=== PATIENT | female | born 1970 | race Caucasian/White ===

== ENCOUNTER 2021-01-28 23:32 | Emergency (ER) | payer SELFPAY ==
[~2021-01-28] VITALS: Ht 160 cm; Wt 182.8 kg
[2021-01-29] MEDS ORDERED: CYCL10 PO (00:11)
[2021-01-29] MEDS ORDERED: OLME20 PO (00:11)
[2021-01-29] MEDS ORDERED: EUTHYROX125 MCG PO (00:12)
[2021-01-29 00:25] LABS: Source, Urine Clean Catch
[2021-01-29 00:28] LABS: Appearance, Urine Hazy (Clear); Bilirubin, Urine Neg (Neg); Blood, Urine 5+ (Neg); Color, Urine Yellow (P-Yellow); Glucose Qualitative, Urine Neg (Neg); Ketones, Urine Neg (Neg); Leukocyte Esterase, Urine 1+ (Neg); Nitrite, Urine Neg (Neg); Protein, Urine 2+ (Neg); Specific Gravity, Urine 1.025 (1.003-1.022); Urobilinogen, Urine NORM (Normal)
[2021-01-29 00:36] LABS: Bacteria Many /hpf; Red Blood Cells, Urine TNTC /hpf (0-2); Squamous Epithelial Cells Few /hpf (Few)
[2021-01-29] MEDS ORDERED: Macrobid 100 M100 MG PO (00:49)
== END 2021-01-29 01:16 | disposition home or self-care (01) ==
LOC: ER 23:32
PROVIDERS: Physician Assistant
DX: K64.4 Residual hemorrhoidal skin tags (principal); N39.0 Urinary tract infection, site not specified; I10 Essential (primary) hypertension; E03.9 Hypothyroidism, unspecified; Z88.0 Allergy status to penicillin; Z79.899 Other long term (current) drug therapy
CPT/HCPCS: 81001; 87086; 99282; A9270

== ENCOUNTER 2021-02-28 04:26 | Emergency (ER) | payer BC ==
[~2021-02-28] VITALS: Ht 160 cm; Wt 175.1 kg
[~2021-02-28 04:26] MED LIST: CYCL10 PO; EUTHYROX125 MCG PO; Macrobid 100 M100 MG PO; OLME20 PO
[2021-02-28 05:01] LABS: BASOPHILS ABSOLUTE AUTO 0.04 K/mm3 (0.00-0.23); BASOPHILS PERCENT AUTO 1 % (0-2); EOSINOPHILS ABSOLUTE AUTO 0.04 K/mm3 (0.00-0.68); EOSINOPHILS PERCENT AUTO 1 % (0-6); Hematocrit 44.7 % (33.0-51.0); Hemoglobin 15.4 g/dL (11.5-16.0); IMMATURE GRAN ABSOLUTE AUTO 0.02 K/mm3 (0.00-0.10); IMMATURE GRAN PERCENT AUTO 0 % (0-1); LYMPHOCYTES ABSOLUTE AUTO 1.37 K/mm3 (0.84-5.20); LYMPHOCYTES PERCENT AUTO 18 % (21-46); MONOCYTES ABSOLUTE AUTO 0.34 K/mm3 (0.16-1.47); MONOCYTES PERCENT AUTO 5 % (4-13); Mean Corpuscular HGB Conc 34.5 g/dL (31.5-36.5); Mean Corpuscular Volume 93 fL (80-100); Mean Platelet Volume 9.2 fL (9.1-12.4); NEUTROPHILS ABSOLUTE AUTO 5.76 K/mm3 (1.96-9.15); NEUTROPHILS PERCENT AUTO 76 % (41-73); Platelet Count 367 K/mm3 (150-400); RDW Coefficient Variation 13.2 % (11.7-14.2); Red Blood Cell Count 4.82 M/mm3 (3.80-5.20); White Blood Cell Count 7.57 K/mm3 (4.00-11.30)
[2021-02-28 05:35] LABS: Alanine Aminotransfer (ALT/SGP 63 U/L (12-78); Albumin, Blood 3.4 g/dL (3.4-5.0); Albumin/Globulin Ratio 0.8 (0.8-1.8); Alk Phos 70 U/L (50-136); Anion Gap 8 mmol/L (6-16); Aspartate Aminotrans (AST/SGOT 45 U/L (12-37); Bilirubin, Total 1.6 mg/dL (0.1-1.0); Blood Urea Nitrogen 13 mg/dL (8-24); Bun/Creatinine Ratio 14.4 (12.0-20.0); CO2, Blood 22 mmol/L (21-32); Calcium, Blood 9.2 mg/dL (8.5-10.1); Chloride, Blood 110 mmol/L (98-108); Glomerular Filtration Rate >60 (60-); Glucose, Blood 130 mg/dL (70-99); Potassium, Blood 3.8 mmol/L (3.5-5.5); Sodium, Blood 140 mmol/L (136-145); Total Protein, Blood 7.4 g/dL (6.4-8.2)
[2021-02-28 05:43] LABS: Source, Urine Clean Catch
[2021-02-28 05:51] LABS: Bilirubin, Urine Neg (Neg); Blood, Urine 5+ (Neg); Glucose Qualitative, Urine Neg (Neg); Ketones, Urine 2+ (Neg); Leukocyte Esterase, Urine Neg (Neg); Nitrite, Urine Neg (Neg); Protein, Urine 1+ (Neg); Urobilinogen, Urine NORM (Normal)
[2021-02-28 06:03] LABS: Appearance, Urine Clear (Clear); Color, Urine Yellow (P-Yellow)
[2021-02-28 06:04] LABS: Amorphous Light (0-Heavy); Bacteria Few /hpf; Mucus Light (0-Heavy); Squamous Epithelial Cells Few /hpf (Few); White Blood Cells, Urine Rare /hpf (0-5)
== END 2021-02-28 07:08 | disposition home or self-care (01) ==
LOC: ER 04:26
PROVIDERS: Student in an Organized Health Care Education/Training Program
DX: N20.0 Calculus of kidney (principal); E03.9 Hypothyroidism, unspecified; I10 Essential (primary) hypertension; Z88.1 Allergy status to other antibiotic agents; Z79.899 Other long term (current) drug therapy
CPT/HCPCS: 36415; 74176; 80053; 81001; 83690; 85025; 99284-25; A9270

== ENCOUNTER 2021-05-23 02:23 | Inpatient (IN) | payer OTHER ==
[~2021-05-23] VITALS: Ht 160 cm; Wt 177.4 kg
[2021-05-23 03:04] LABS: Source, Urine Voided
[2021-05-23 03:06] LABS: BASOPHILS ABSOLUTE AUTO 0.07 K/mm3 (0.00-0.23); BASOPHILS PERCENT AUTO 0 % (0-2); EOSINOPHILS PERCENT AUTO 0 % (0-6); Hematocrit 46.7 % (33.0-51.0); Hemoglobin 15.6 g/dL (11.5-16.0); IMMATURE GRAN PERCENT AUTO 1 % (0-1); LYMPHOCYTES PERCENT AUTO 8 % (21-46); MONOCYTES ABSOLUTE AUTO 0.99 K/mm3 (0.16-1.47); MONOCYTES PERCENT AUTO 6 % (4-13); Mean Corpuscular HGB Conc 33.4 g/dL (31.5-36.5); Mean Corpuscular Volume 93 fL (80-100); Mean Platelet Volume 8.7 fL (9.1-12.4); NEUTROPHILS ABSOLUTE AUTO 15.42 K/mm3 (1.96-9.15); NEUTROPHILS PERCENT AUTO 85 % (41-73); Platelet Count 401 K/mm3 (150-400); RDW Coefficient Variation 12.5 % (11.7-14.2); RDW Standard Deviation 42.6 fL (35.1-46.3); Red Blood Cell Count 5.04 M/mm3 (3.80-5.20); White Blood Cell Count 18.08 K/mm3 (4.00-11.30)
[2021-05-23 03:06] LABS: Bilirubin, Urine Neg (Neg); Blood, Urine 5+ (Neg); Glucose Qualitative, Urine Neg (Neg); Ketones, Urine Neg (Neg); Leukocyte Esterase, Urine 3+ (Neg); Nitrite, Urine Pos (Neg); Protein, Urine 3+ (Neg); Urobilinogen, Urine NORM (Normal)
[2021-05-23 03:10] LABS: Appearance, Urine Cloudy (Clear); Color, Urine Yellow (P-Yellow)
[2021-05-23 03:12] LABS: Bacteria Many /hpf; Squamous Epithelial Cells Few /hpf (Few); White Blood Cells, Urine TNTC /hpf (0-5)
[2021-05-23 03:23] LABS: Alanine Aminotransfer (ALT/SGP 34 U/L (12-78); Albumin, Blood 3.3 g/dL (3.4-5.0); Albumin/Globulin Ratio 0.7 (0.8-1.8); Alk Phos 80 U/L (50-136); Anion Gap 9 mmol/L (6-16); Aspartate Aminotrans (AST/SGOT 26 U/L (12-37); Bilirubin, Total 1.9 mg/dL (0.1-1.0); Blood Urea Nitrogen 16 mg/dL (8-24); Bun/Creatinine Ratio 17.4 (12.0-20.0); CO2, Blood 20 mmol/L (21-32); Calcium, Blood 9.3 mg/dL (8.5-10.1); Chloride, Blood 109 mmol/L (98-108); Creatinine, Blood 0.92 mg/dL (0.40-1.00); Globulin, Blood 4.5 g/dL (2.2-4.0); Glomerular Filtration Rate >60 (60-); Glucose, Blood 147 mg/dL (70-99); Potassium, Blood 4.1 mmol/L (3.5-5.5); Sodium, Blood 138 mmol/L (136-145); Total Protein, Blood 7.8 g/dL (6.4-8.2)
[2021-05-23 08:32] LABS: Influenza A, PCR NEGATIVE (NEGATIVE); Influenza B, PCR NEGATIVE (NEGATIVE); Resp Syncytial Virus, PCR NEGATIVE (NEGATIVE); SARS-Cov-2 (COVID-19) PCR, MMC NEGATIVE (NEGATIVE)
--- NOTE | 2021-05-23 18:34 | NUR ---
PATIENT CURRENTLY SITTING UP IN BED WITH NO SIGNS OR SYMPTOMS ACUTE DISTRESS NOTED. CALL LIGHT AND WATER ARE IN EASY REACH. PATIENT ARRIVED TO THE FLOOR EARLIER FROM THE ED. PATIENT IS WAITING FOR BED TO COME OPEN AT [facility] IN [place] FOR UROLOGY. STRAINING ALL URINE PER ORDERS. NO STONE NOTED OF YET. PATIENT MEDICATED FOR PAIN PER ORDERS SEE MAGALIR. AAOX4. UP AD FAVIOLA. STEADY ON FEET. IVF CONTINUE. PATIENT DOES BECOME SOB WITH EXERTION. WILL CONTINUE TO MONITOR.
[2021-05-24 04:08] LABS: BASOPHILS ABSOLUTE AUTO 0.03 K/mm3 (0.00-0.23); BASOPHILS PERCENT AUTO 0 % (0-2); EOSINOPHILS ABSOLUTE AUTO 0.02 K/mm3 (0.00-0.68); EOSINOPHILS PERCENT AUTO 0 % (0-6); Hematocrit 39.1 % (33.0-51.0); Hemoglobin 12.9 g/dL (11.5-16.0); IMMATURE GRAN ABSOLUTE AUTO 0.04 K/mm3 (0.00-0.10); IMMATURE GRAN PERCENT AUTO 0 % (0-1); LYMPHOCYTES ABSOLUTE AUTO 1.18 K/mm3 (0.84-5.20); LYMPHOCYTES PERCENT AUTO 11 % (21-46); MONOCYTES ABSOLUTE AUTO 0.68 K/mm3 (0.16-1.47); MONOCYTES PERCENT AUTO 7 % (4-13); Mean Corpuscular HGB 31.3 pg (26.0-34.0); Mean Corpuscular Volume 95 fL (80-100); Mean Platelet Volume 9.2 fL (9.1-12.4); NEUTROPHILS ABSOLUTE AUTO 8.55 K/mm3 (1.96-9.15); NEUTROPHILS PERCENT AUTO 81 % (41-73); Platelet Count 232 K/mm3 (150-400); RDW Coefficient Variation 12.6 % (11.7-14.2); RDW Standard Deviation 43.9 fL (35.1-46.3); Red Blood Cell Count 4.12 M/mm3 (3.80-5.20)
[2021-05-24 04:42] LABS: Bun/Creatinine Ratio 17.1 (12.0-20.0); Calcium, Blood 8.4 mg/dL (8.5-10.1); Creatinine, Blood 1.17 mg/dL (0.40-1.00); Potassium, Blood 4.3 mmol/L (3.5-5.5)
--- NOTE | 2021-05-24 11:59 | NUR ---
Pt. was alert, sitting up in bed and finishing lunch. Pt. welcomed my visit. Pt. unsettled about current pain from a kidney stone that she described as "stuck." Listened empathetically. Pt. verbalized a nominal swapnil, and then became cathartic when she described the pain and pressure of family who have a different swapnil practice. Offered emotional support, and established rapport with pt. With permission prayed for pt. Pt. displayed evidence of agreement and verbalized gratitude for both prayer and my visit.
--- NOTE | 2021-05-24 17:52 | NUR ---
PATIENT CURRENTLY SITTING UP IN BED EATING HER MEAL. NO SIGNS OR SYMPTOMS ACUTE DISTRESS NOTED. NO COMPLAINTS VOICED AT THIS TIME. AAOX4, ABLE TO MAKE NEEDS AND WANTS KNOWN. PATIENT UP AD FAVIOLA, ALL URINE HAS BEEN STRAINED TODAY. PATIENT DOES NOT COMPLAIN OF ANY UTI SYMPTOMS OR PAIN UPON URINATION. PATIENT MEDICATED TODAY FOR A HEACACHE AND FEVER. SEE EMAR. CONTINUE TO WAIT FOR A BED IN [place], NONE AVAILABLE AT THIS TIME. IVF CONTINUE. WILL MONITOR.
--- NOTE | 2021-05-24 18:53 | NUR ---
RECEIVED REPORT AND ASSUMED CARE OF PT. SHE IS SITTING UP IN BED, DENIES ANY COMPLAINTS OR CONCERNS AT THIS TIME. WCTM.
--- NOTE | 2021-05-24 22:06 | NUR ---
ASSUMED CARE OF PT. PT SLEEPING IN BED, RESP E/U, NO DISTRESS NOTED. WILL MONITOR AND TX PER ORDERS.
[2021-05-25 05:32] LABS: Bun/Creatinine Ratio 14.1 (12.0-20.0); Calcium, Blood 8.4 mg/dL (8.5-10.1); Creatinine, Blood 0.99 mg/dL (0.40-1.00); Potassium, Blood 3.9 mmol/L (3.5-5.5)
--- NOTE | 2021-05-25 06:34 | NUR ---
T-MAX 100.5, OTHER VSS. PT DENIED PAIN W/VOID, URINE NOW DARK YELLOW (WAS PREV SHANNA). URINE STRAINED, SOME SEDIMENT W/NO OBVIOUS STONES NOTED. PT DENIED N/V. PT UP INDEP IN ROOM. IVF AND ABX CONT PER ORDERS. CONT TO AWAIT UROLOGY TRANSFER
--- NOTE | 2021-05-25 11:42 | NUR ---
TO RADIOLOGY VIA WHEELCHAIR
--- NOTE | 2021-05-25 11:58 | NUR ---
RETURN TO ROOM FROM RADIOLOGY. PT DENIES PAIN
--- NOTE | 2021-05-25 16:18 | NUR ---
1615 DISCHARGED TO BE TRANSPORTED TO [facility] VIA AMBULANCE. PT IN AGREEMENT WITH PLANS FOR TRANSFER. PT DENIES PAIN.
== END 2021-05-25 16:15 | disposition short-term general hospital (02) | DRG 872 ==
LOC: ER 02:23 → MEDS 11:23 → SURS 11:23
PROVIDERS: Emergency Medicine; Internal Medicine; Nurse Practitioner Acute Care; Student in an Organized Health Care Education/Training Program; ADMIT Family Medicine
DX: A41.51 Sepsis due to Escherichia coli [E. coli] (principal); N13.6 Pyonephrosis; Z68.44 Body mass index [BMI] 60.0-69.9, adult; R65.20 Severe sepsis without septic shock; Z20.822 Contact with and (suspected) exposure to COVID-19; E66.01 Morbid (severe) obesity due to excess calories; I10 Essential (primary) hypertension; E03.9 Hypothyroidism, unspecified; Z87.19 Personal history of other diseases of the digestive system; Z88.0 Allergy status to penicillin; Z79.899 Other long term (current) drug therapy
CPT/HCPCS: 0241U; 36415; 74176; 76770; 80048; 80053; 81001; 83605; 83690; 85025; 87040; 87077; 87086; 87186; 93005; 93010; 96361; 96365; 96375; 99285-25; A9270; J1170; J1885; J1956; J2405; J2550; J7030; J7120

== ENCOUNTER → 2021-09-29 | Outpatient (CLI) | payer OTHER ==
[~2021-09-29] MED LIST changes: +HYDR1TAB94 PO; +LOSA50 PO; +ONDA4 PO; +TRAM50
[2021-09-29 20:18] LABS: Microalb/Creat Ratio UR, Rand 6.429 mg/g (0.000-30.000)
== END | disposition home or self-care (01) ==
LOC: LAB SHORT 17:51
PROVIDERS: Family Medicine
DX: N20.0 Calculus of kidney (principal)
CPT/HCPCS: 82043; 82570; 87077; 87086; 87186

== ENCOUNTER → 2022-03-24 | Outpatient (CLI) | payer OTHER ==
[~2022-03-24] MED LIST changes: +ONDA4ODT MM; +Percocet 5-3251 EACH PO
[2022-03-24 10:52] LABS: Source, Urine Voided
[2022-03-24 10:53] LABS: BASOPHILS ABSOLUTE AUTO 0.05 K/mm3 (0.00-0.23); BASOPHILS PERCENT AUTO 1 % (0-2); EOSINOPHILS ABSOLUTE AUTO 0.19 K/mm3 (0.00-0.68); EOSINOPHILS PERCENT AUTO 3 % (0-6); Hemoglobin 15.2 g/dL (11.5-16.0); IMMATURE GRAN ABSOLUTE AUTO 0.01 K/mm3 (0.00-0.10); IMMATURE GRAN PERCENT AUTO 0 % (0-1); LYMPHOCYTES ABSOLUTE AUTO 1.94 K/mm3 (0.84-5.20); LYMPHOCYTES PERCENT AUTO 34 % (21-46); MONOCYTES ABSOLUTE AUTO 0.32 K/mm3 (0.16-1.47); MONOCYTES PERCENT AUTO 6 % (4-13); Mean Corpuscular HGB 31.7 pg (26.0-34.0); Mean Corpuscular HGB Conc 33.8 g/dL (31.5-36.5); Mean Corpuscular Volume 94 fL (80-100); Mean Platelet Volume 8.8 fL (9.1-12.4); NEUTROPHILS ABSOLUTE AUTO 3.28 K/mm3 (1.96-9.15); NEUTROPHILS PERCENT AUTO 57 % (41-73); Platelet Count 324 K/mm3 (150-400); RDW Coefficient Variation 12.9 % (11.7-14.2); RDW Standard Deviation 44.1 fL (35.1-46.3); Red Blood Cell Count 4.79 M/mm3 (3.80-5.20); White Blood Cell Count 5.79 K/mm3 (4.00-11.30)
[2022-03-24 10:58] LABS: Bacteria Not Seen /hpf; Red Blood Cells, Urine 0-2 /hpf (0-2); Squamous Epithelial Cells Few /hpf (Few); White Blood Cells, Urine 0-2 /hpf (0-5)
[2022-03-24 11:01] LABS: Albumin, Blood 3.4 g/dL (3.4-5.0); Albumin/Globulin Ratio 0.9 (0.8-1.8); Bun/Creatinine Ratio 21.2 (12.0-20.0); Calcium, Blood 8.7 mg/dL (8.5-10.1); Creatinine, Blood 0.85 mg/dL (0.40-1.00); Potassium, Blood 4.1 mmol/L (3.5-5.5); Total Protein, Blood 7.4 g/dL (6.4-8.2)
== END | disposition home or self-care (01) ==
LOC: LAB 10:48 → LAB SHORT 10:48
PROVIDERS: General Practice
DX: N20.0 Calculus of kidney (principal); N39.0 Urinary tract infection, site not specified
CPT/HCPCS: 80053; 81015; 85025; 87077; 87086; 87186

== ENCOUNTER → 2022-11-30 | Outpatient (CLI) | payer OTHER ==
[~2022-11-30] MED LIST changes: +Bactrim Ds Tab1 EACH PO; +TRAM50 PO
[2022-11-30 16:05] LABS: BASOPHILS ABSOLUTE AUTO 0.05 K/mm3 (0.00-0.23); BASOPHILS PERCENT AUTO 1 % (0-2); EOSINOPHILS ABSOLUTE AUTO 0.15 K/mm3 (0.00-0.68); EOSINOPHILS PERCENT AUTO 2 % (0-6); Hematocrit 44.8 % (33.0-51.0); Hemoglobin 15.5 g/dL (11.5-16.0); IMMATURE GRAN ABSOLUTE AUTO 0.02 K/mm3 (0.00-0.10); IMMATURE GRAN PERCENT AUTO 0 % (0-1); LYMPHOCYTES PERCENT AUTO 29 % (21-46); MONOCYTES ABSOLUTE AUTO 0.57 K/mm3 (0.16-1.47); MONOCYTES PERCENT AUTO 7 % (4-13); Mean Corpuscular HGB 32.2 pg (26.0-34.0); Mean Corpuscular HGB Conc 34.6 g/dL (31.5-36.5); Mean Corpuscular Volume 93 fL (80-100); Mean Platelet Volume 9.7 fL (9.1-12.4); NEUTROPHILS ABSOLUTE AUTO 5.39 K/mm3 (1.96-9.15); NEUTROPHILS PERCENT AUTO 62 % (41-73); Platelet Count 323 K/mm3 (150-400); RDW Coefficient Variation 12.5 % (11.7-14.2); RDW Standard Deviation 42.6 fL (35.1-46.3); Red Blood Cell Count 4.82 M/mm3 (3.80-5.20); White Blood Cell Count 8.68 K/mm3 (4.00-11.30)
[2022-11-30 16:22] LABS: Percent Saturation 34.5 % (15.0-50.0)
== END ==
LOC: LAB 11:30 → LAB SHORT 11:30
PROVIDERS: Family Medicine
DX: G25.81 Restless legs syndrome (principal)
CPT/HCPCS: 82607; 82728; 82746; 83540; 83550; 83735; 85025

== ENCOUNTER → 2022-12-26 | Outpatient (CLI) | payer OTHER ==
[~2022-12-26] MED LIST changes: +AZIT250 PO; +CELE100 PO; +HYDCHL25 PO; +Norco 5-325 Ta1 EACH PO; +Pepcid20 MG PO
== END | disposition home or self-care (01) ==
LOC: LAB 14:07 → LAB SHORT 14:07
DX: R07.81 Pleurodynia (principal)
CPT/HCPCS: 85379

== ENCOUNTER → 2022-12-26 | Outpatient (CLI) | payer OTHER ==
[2022-12-26 13:42] LABS: BASOPHILS ABSOLUTE AUTO 0.06 K/mm3 (0.00-0.23); BASOPHILS PERCENT AUTO 1 % (0-2); EOSINOPHILS ABSOLUTE AUTO 0.29 K/mm3 (0.00-0.68); EOSINOPHILS PERCENT AUTO 4 % (0-6); Hematocrit 44.9 % (33.0-51.0); Hemoglobin 15.8 g/dL (11.5-16.0); IMMATURE GRAN ABSOLUTE AUTO 0.01 K/mm3 (0.00-0.10); IMMATURE GRAN PERCENT AUTO 0 % (0-1); LYMPHOCYTES PERCENT AUTO 42 % (21-46); MONOCYTES ABSOLUTE AUTO 0.48 K/mm3 (0.16-1.47); MONOCYTES PERCENT AUTO 7 % (4-13); Mean Corpuscular HGB 32.4 pg (26.0-34.0); Mean Corpuscular HGB Conc 35.2 g/dL (31.5-36.5); Mean Corpuscular Volume 92 fL (80-100); Mean Platelet Volume 9.8 fL (9.1-12.4); NEUTROPHILS ABSOLUTE AUTO 3.38 K/mm3 (1.96-9.15); NEUTROPHILS PERCENT AUTO 46 % (41-73); Platelet Count 359 K/mm3 (150-400); RDW Coefficient Variation 12.9 % (11.7-14.2); RDW Standard Deviation 43.4 fL (35.1-46.3); Red Blood Cell Count 4.88 M/mm3 (3.80-5.20); White Blood Cell Count 7.32 K/mm3 (4.00-11.30)
[2022-12-26 13:58] LABS: Bun/Creatinine Ratio 24.3 (12.0-20.0); Calcium, Blood 9.3 mg/dL (8.5-10.1); Creatinine, Blood 0.82 mg/dL (0.40-1.00); Potassium, Blood 3.5 mmol/L (3.5-5.5)
== END | disposition home or self-care (01) ==
LOC: LAB SHORT 12:15 → LAB 12:15
PROVIDERS: Family Medicine
DX: R07.81 Pleurodynia (principal)
CPT/HCPCS: 80048; 84484; 85025

== ENCOUNTER 2022-12-31 06:55 | Emergency (ER) | payer OTHER ==
[~2022-12-31] VITALS: Ht 160 cm; Wt 186.0 kg
[~2022-12-31 06:55] MED LIST changes: -AZIT250 PO; -CELE100 PO; -HYDCHL25 PO; -Norco 5-325 Ta1 EACH PO; -Pepcid20 MG PO
[2022-12-31] MEDS ORDERED: AZIT250 PO (07:19)
[2022-12-31] MEDS ORDERED: HYDCHL25 PO (07:20)
[2022-12-31] MEDS ORDERED: CELE100 PO (07:20)
[2022-12-31 07:41] LABS: BASOPHILS ABSOLUTE AUTO 0.04 K/mm3 (0.00-0.23); BASOPHILS PERCENT AUTO 1 % (0-2); EOSINOPHILS PERCENT AUTO 3 % (0-6); Hematocrit 41.9 % (33.0-51.0); Hemoglobin 14.3 g/dL (11.5-16.0); IMMATURE GRAN ABSOLUTE AUTO 0.02 K/mm3 (0.00-0.10); IMMATURE GRAN PERCENT AUTO 0 % (0-1); LYMPHOCYTES ABSOLUTE AUTO 1.81 K/mm3 (0.84-5.20); LYMPHOCYTES PERCENT AUTO 28 % (21-46); MONOCYTES PERCENT AUTO 6 % (4-13); Mean Corpuscular HGB 31.8 pg (26.0-34.0); Mean Corpuscular HGB Conc 34.1 g/dL (31.5-36.5); Mean Corpuscular Volume 93 fL (80-100); Mean Platelet Volume 9.1 fL (9.1-12.4); NEUTROPHILS ABSOLUTE AUTO 4.01 K/mm3 (1.96-9.15); NEUTROPHILS PERCENT AUTO 62 % (41-73); Platelet Count 282 K/mm3 (150-400); RDW Coefficient Variation 12.7 % (11.7-14.2); RDW Standard Deviation 43.5 fL (35.1-46.3); White Blood Cell Count 6.48 K/mm3 (4.00-11.30)
[2022-12-31 08:06] LABS: Albumin/Globulin Ratio 0.8 (0.8-1.8); Bilirubin, Total 0.9 mg/dL (0.1-1.0); Bun/Creatinine Ratio 21.8 (12.0-20.0); Calcium, Blood 8.7 mg/dL (8.5-10.1); Creatinine, Blood 0.87 mg/dL (0.40-1.00); Globulin, Blood 3.6 g/dL (2.2-4.0); Potassium, Blood 3.8 mmol/L (3.5-5.5); Total Protein, Blood 6.6 g/dL (6.4-8.2)
[2022-12-31 08:28] LABS: Source, Urine Voided
[2022-12-31 08:36] LABS: Appearance, Urine Hazy (Clear); Bilirubin, Urine Neg (Neg); Blood, Urine Neg (Neg); Color, Urine Yellow (P-Yellow); Glucose Qualitative, Urine Neg (Neg); Ketones, Urine Neg (Neg); Leukocyte Esterase, Urine 1+ (Neg); Nitrite, Urine Neg (Neg); Protein, Urine 1+ (Neg); Specific Gravity, Urine 1.025 (1.003-1.022); Urobilinogen, Urine NORM (Normal)
[2022-12-31 08:48] LABS: Bacteria Many /hpf; Squamous Epithelial Cells Many /hpf (Few)
[2022-12-31 08:51] LABS: Hyaline Casts 0-2 /lpf (0-2); Mucus Mod (0-Heavy)
[2022-12-31] MEDS ORDERED: Norco 5-325 Ta1 EACH PO (11:25)
[2022-12-31] MEDS ORDERED: ONDA4ODT MM (11:25)
[2022-12-31] MEDS ORDERED: Pepcid20 MG PO (11:25)
[2022-12-31 11:50] VITALS: BP 122/70
== END 2022-12-31 12:01 | disposition home or self-care (01) ==
LOC: ER 06:55
PROVIDERS: Emergency Medicine
DX: K80.50 Calculus of bile duct without cholangitis or cholecystitis without obstruction (principal); E03.9 Hypothyroidism, unspecified; I10 Essential (primary) hypertension; Z88.0 Allergy status to penicillin; Z91.018 Allergy to other foods; Z79.899 Other long term (current) drug therapy
CPT/HCPCS: 74177; 80053; 81001; 81025; 83690; 85025; 87077; 87086; 87147; 87186; 93005; 93010; 96374; 99285-25; J2270; Q9967

== ENCOUNTER → 2023-04-19 | Outpatient (CLI) | payer OTHER ==
[~2023-04-19] MED LIST changes: +AZIT250 PO; +CELE100 PO; +HYDCHL25 PO; +Norco 5-325 Ta1 EACH PO; +Pepcid20 MG PO
[2023-04-19 22:13] LABS: C DIFFICILE DNA NEGATIVE (Negative)
== END ==
LOC: LAB SHORT 14:25
PROVIDERS: Nurse Practitioner Family
DX: R19.7 Diarrhea, unspecified (principal)
CPT/HCPCS: 87493

== ENCOUNTER 2023-05-19 03:31 | Emergency (ER) | payer OTHER ==
[~2023-05-19] VITALS: Ht 160 cm; Wt 195.0 kg
[2023-05-19 03:35] VITALS: BP 158/97
[2023-05-19] MEDS ORDERED: CHOLESTYRAMI239.4 G1 PO (03:45)
[2023-05-19] MEDS ORDERED: OLME5TAB PO (03:46)
[2023-05-19 03:59] LABS: BASOPHILS ABSOLUTE AUTO 0.04 K/mm3 (0.00-0.23); BASOPHILS PERCENT AUTO 1 % (0-2); EOSINOPHILS ABSOLUTE AUTO 0.23 K/mm3 (0.00-0.68); EOSINOPHILS PERCENT AUTO 4 % (0-6); Hematocrit 41.8 % (33.0-51.0); Hemoglobin 14.2 g/dL (11.5-16.0); IMMATURE GRAN ABSOLUTE AUTO 0.01 K/mm3 (0.00-0.10); IMMATURE GRAN PERCENT AUTO 0 % (0-1); LYMPHOCYTES ABSOLUTE AUTO 2.37 K/mm3 (0.84-5.20); LYMPHOCYTES PERCENT AUTO 40 % (21-46); MONOCYTES ABSOLUTE AUTO 0.46 K/mm3 (0.16-1.47); MONOCYTES PERCENT AUTO 8 % (4-13); Mean Corpuscular HGB 31.8 pg (26.0-34.0); Mean Corpuscular Volume 94 fL (80-100); Mean Platelet Volume 9.2 fL (9.1-12.4); NEUTROPHILS ABSOLUTE AUTO 2.89 K/mm3 (1.96-9.15); NEUTROPHILS PERCENT AUTO 48 % (41-73); Platelet Count 296 K/mm3 (150-400); RDW Coefficient Variation 13.1 % (11.7-14.2); Red Blood Cell Count 4.47 M/mm3 (3.80-5.20)
[2023-05-19 04:17] LABS: Albumin/Globulin Ratio 0.8 (0.8-1.8); Bilirubin, Total 1.2 mg/dL (0.1-1.0); Bun/Creatinine Ratio 23.8 (12.0-20.0); Calcium, Blood 8.6 mg/dL (8.5-10.1); Creatinine, Blood 0.88 mg/dL (0.40-1.00); Globulin, Blood 3.7 g/dL (2.2-4.0); Potassium, Blood 4.1 mmol/L (3.5-5.5); Total Protein, Blood 6.7 g/dL (6.4-8.2)
[2023-05-19 04:37] LABS: Source, Urine Clean Catch
[2023-05-19 04:42] LABS: Bilirubin, Urine Neg (Neg); Blood, Urine Neg (Neg); Glucose Qualitative, Urine Neg (Neg); Ketones, Urine Neg (Neg); Leukocyte Esterase, Urine Neg (Neg); Nitrite, Urine Neg (Neg); Protein, Urine Neg (Neg); Urobilinogen, Urine NORM (Normal)
[2023-05-19 04:47] LABS: Appearance, Urine Clear (Clear); Color, Urine Yellow (P-Yellow)
[2023-05-19] MEDS ORDERED: Robaxin750 MG PO (05:28)
[2023-05-19] MEDS ORDERED: ONDA4ODT MM (05:28)
== END 2023-05-19 06:24 | disposition home or self-care (01) ==
LOC: ER 03:31
PROVIDERS: Emergency Medicine
DX: K52.9 Noninfective gastroenteritis and colitis, unspecified (principal); E03.9 Hypothyroidism, unspecified; I10 Essential (primary) hypertension
CPT/HCPCS: 80053; 81003; 83690; 85025; 93005; 93010; 96361; 96374; 96375; 96376; 99284-25; A9270; J1170; J1885; J2405; J7120

== ENCOUNTER 2023-05-27 07:38 | Emergency (ER) | payer OTHER ==
[~2023-05-27] VITALS: Ht 160 cm; Wt 197.3 kg
[~2023-05-27 07:38] MED LIST changes: +CHOLESTYRAMI239.4 G1 PO; +OLME5TAB PO; +Robaxin750 MG PO
[2023-05-27] MEDS ORDERED: Dexamethasone Sodium Phosphate 4 MG/ML 1ML Vial IV ONE (09:00)
[2023-05-27] MEDS ORDERED: Ketorolac Tromethamine 15mg Vial IV ONE (09:00)
[2023-05-27] MEDS ORDERED: Ondansetron HCl 2 MG / ML 2ML Vial IV ONE (09:00)
[2023-05-27] MEDS ORDERED: HYDROmorphone HCl/Pf 1MG SYR IV ONE (09:00)
[2023-05-27] MEDS ORDERED: METPRE4DP PO (10:15)
[2023-05-27] MEDS ORDERED: OXYC5 PO (10:15)
[2023-05-27 10:56] VITALS: BP 140/92
== END 2023-05-27 10:56 | disposition home or self-care (01) ==
LOC: ER 07:38
DX: M54.31 Sciatica, right side (principal); I10 Essential (primary) hypertension; E03.9 Hypothyroidism, unspecified; Z79.899 Other long term (current) drug therapy; Z88.0 Allergy status to penicillin; Z91.018 Allergy to other foods; X50.9XXA Other and unspecified overexertion or strenuous movements or postures, initial encounter; Y92.810 Car as the place of occurrence of the external cause; Y93.89 Activity, other specified
CPT/HCPCS: 96374; 96375; 99283-25; J1100; J1170; J1885; J2405

== ENCOUNTER → 2024-04-13 | Outpatient (CLI) | payer OTHER ==
[~2024-04-13] MED LIST changes: +DEPRESSION MED; +ESCI10 PO; +FUROSEMIDE20 MG PO; +KLOR-CON 1010 ME9 PO; +METPRE4DP PO; +Methocarbamol750 MG PO; +NITR100CA PO; +OXYC5 PO; +PREGABALIN75 MG PO; +TAMS.4ER PO
[2024-04-20 09:50] LABS: HPV HIGH RISK BY TMA Not Detected; HPV SOURCE Cervical
== END ==
LOC: LAB SHORT 10:37 → LAB 10:37
PROVIDERS: Family Medicine
DX: Z01.419 Encounter for gynecological examination (general) (routine) without abnormal findings (principal)
CPT/HCPCS: 87624; G0123

== ENCOUNTER → 2024-06-20 | Outpatient (CLI) | payer OTHER | LOC: LAB SHORT 12:15 → LAB 12:15 | DX: N39.0 Urinary tract infection, site not specified (principal) | CPT/HCPCS: 87077; 87086; 87147; 87186 ==

== ENCOUNTER → 2024-08-06 | Outpatient (CLI) | payer OTHER ==
[2024-08-12 09:34] LABS: CALCIUM, URINE - PER 24H 266 mg/d (100-250); CHLORIDE, URINE - PER 24H 154 mmol/d (140-250); CHLORIDE, URINE - PER VOLUME 110 mmol/L; CITRIC ACID, URINE - PER 24H 662 mg/d (320-1240); CITRIC ACID,URINE - PER VOLUME 473 mg/L; CREATININE, URINE - PER 24H 2184 mg/d (500-1400); CREATININE, URINE - PER VOLUME 156 mg/dL; HOURS COLLECTED 24 hr; MAGNESIUM, URINE - PER VOLUME 5.9 mg/dL; MAGNESIUM, URINE PER 24H 83 mg/d (12-199); OXALATE, URINE - PER 24H 34 mg/d (13-40); OXALATE, URINE - PER VOLUME 24 mg/L; PH, URINE 5.59 (5.00-7.50); PHOSPHORUS, URINE - PER 24H 1148 mg/d (400-1300); PHOSPHORUS, URINE - PER VOLUME 82 mg/dL; POTASSIUM, URINE - PER 24H 69 mmol/d (25-125); POTASSIUM, URINE - PER VOLUME 49 mmol/L; SODIUM, URINE - PER 24H 227 mmol/d (51-286); SODIUM, URINE - PER VOLUME 162 mmol/L; SULFATE, URINE - PER 24H 17 mmol/d (6-30); SULFATE, URINE - PER VOLUME 12 mmol/L; TOTAL VOLUME 1400 mL; URIC ACID, URINE - PER 24H 493 mg/d (250-750); URIC ACID, URINE - PER VOLUME 35.2 mg/dL; URINE SUPERSATURATION INTERP Abnormal; URINE SUPERSATURATION, CAHPO4 1.58; URINE SUPERSATURATION, CAOX 8.91; URINE SUPERSATURATION, UA CALC 1.06
== END ==
LOC: LAB 07:30 → LAB SHORT 07:30 → EDSTATUS 07-14 15:30 → LAB FUT 07-14 15:30
PROVIDERS: Urology
DX: N20.0 Calculus of kidney (principal)
CPT/HCPCS: 81003; 81050; 82131; 82140; 82340; 82436; 82507; 82570; 83735; 83935; 83945; 84105; 84133; 84300; 84392; 84560

== ENCOUNTER 2024-10-24 02:01 | Emergency (ER) | payer OTHER ==
[~2024-10-24] VITALS: Ht 160 cm; Wt 95.2 kg
[2024-10-24 02:03] VITALS: BP 140/105
[2024-10-24] MEDS ORDERED: Voltaren100 GM TOP (04:48)
[2024-10-24] MEDS ORDERED: Robaxin750 MG PO (04:48)
== END 2024-10-24 04:55 | disposition home or self-care (01) ==
LOC: ER 02:01
DX: S39.012A Strain of muscle, fascia and tendon of lower back, initial encounter (principal); Z88.1 Allergy status to other antibiotic agents; Z88.8 Allergy status to other drugs, medicaments and biological substances; Z79.890 Hormone replacement therapy; Z79.899 Other long term (current) drug therapy; I10 Essential (primary) hypertension; M19.90 Unspecified osteoarthritis, unspecified site; X58.XXXA Exposure to other specified factors, initial encounter
CPT/HCPCS: 99283; A9270

== ENCOUNTER → 2025-03-05 | Outpatient (CLI) | payer OTHER | LOC: LAB 13:01 | DX: N39.0 Urinary tract infection, site not specified (principal) ==